=== PATIENT | female | born 1995 | race Two or more races ===

== ENCOUNTER 2025-08-04 10:58 | Emergency (ER) | payer SELFPAY ==
[2025-08-04] MEDS: Amoxicillin/Clavulanate K 875-125 MG Tab PO ONE (11:35)
== END 2025-08-04 11:37 | disposition home or self-care (01) ==
LOC: JD.ED 10:58
DX: K08.89 Other specified disorders of teeth and supporting structures (principal)
CPT/HCPCS: 99282; A9270